=== PATIENT | female | born 1955 | race Caucasian/White ===

== ENCOUNTER 2023-01-27 07:46 | Day surgery (SDC) | payer OTHER, SELFPAY ==
[2023-01-19 12:28] VITALS: BMI 24.6
[2023-01-27] VITALS (19 sets, daily range): BP systolic 110–133; BP diastolic 73–90; BMI 23.9
[2023-01-27] MEDS: LOW STRENGTH ASPIRIN 81 MG PO (08:11)
--- NOTE | 2023-01-27 09:36 | ITS.CL.CATH ---
[employer] - Catheterization
Cardiac Catheterization
Procedure Report:
CARDIAC CATHETERIZATION REPORT
Date of Procedure: 01/27/2023
Referring: Javed Pena MD
Indication: Exertional dyspnea with abnormal stress echocardiogram
HEMODYNAMIC DATA
AO: 123/82
LV: 123/10
LEFT VENTRICULOGRAPHY: Borderline apical hypokinesis with EF 54%
CORONARY ANGIOGRAPHY
Dominance: Right
Left Main: Normal
LAD: Normal
Circumflex: Normal
RCA: Normal dominant RCA
Closure Device: None-we attempted right radial access but were unable to pass the soft tip wire more than about 4 cm into the radial artery. We converted to a right femoral approach using 5 [place] system. Manual compression was used for hemostasis
Radiation (mGy): 159
DAP (cm2.Gy): 14.6
Fluoroscopy time: 1.7 minutes
CONCLUSIONS
1: Borderline apical hypokinesis with EF 54%
2: Normal coronary arteries
Copy to: Javed Pena MD, Briana Prajapati MD
Tonio Wagner MD, [facility], [facility]
--- NOTE | 2023-01-27 09:53 | PTCARENOTE ---
upon arrival to recovery room, patient is noted to have ecchymosis to right radial stick site. additionally, under blood pressure cuff, some ecchymosis is noted.
[2023-01-27] MEDS: NSS 1000 IV (10:09)
== END 2023-01-27 13:00 | disposition home or self-care (01) ==
LOC: CATH 07:46
PROVIDERS: ATTENDING PHYSICIAN Internal Medicine Cardiovascular Disease; OTHER PHYSICIAN Internal Medicine Cardiovascular Disease
DX: R06.09 Other forms of dyspnea (principal); R94.39 Abnormal result of other cardiovascular function study; I10 Essential (primary) hypertension; R06.02 Shortness of breath; I47.10 Supraventricular tachycardia, unspecified
CPT/HCPCS: 93005; 93458; C1894; Q9967